=== PATIENT | female | born 1960 | race Caucasian/White ===

== ENCOUNTER 2018-05-21 15:13 | Outpatient (CLI) | payer OTHER ==
[~2018-05-21 15:13] MED LIST: AMBIEN5 MG PO; AVAPRO150 MG PO; KLONOPIN0.5 MG/TAB PO; SKELAXIN400 MG PO
== END 2018-05-21 15:15 | disposition home or self-care (01) ==
LOC: SONOGRAMA 15:13
DX: E03.8 Other specified hypothyroidism (principal); E07.89 Other specified disorders of thyroid